=== PATIENT | male | born 1975 | race Caucasian/White ===

== ENCOUNTER 2021-07-21 15:20 | Outpatient (CLI) | payer BC, SELFPAY ==
--- NOTE | ~2021-07-21 | CT_ITS ---
EXAMINATION: CT sinus wo con DATE: 07/21/2021 15:41 INDICATION: Chronic sinusitis TECHNIQUE: Computed tomography (CT) of the paranasal sinuses was performed without intravenous contra st. The dose-length product was 288.76 mGy-cm. Automated exposure control and iterative reconstructio n technique were employed. COMPARISON: None FINDINGS: There is minimal mucosal thickening of the left frontal and ethmoid sinuses. There are muco us retention cysts in both maxillary sinuses. There is mild mucosal thickening of the maxillary sinus es. Leftward nasal septal deviation. Ostiomeatal units are patent. Mastoids are pneumatized. IMPRESSION: 1. Mild sinusitis. Reviewed, dictated and finalized at location A. [employer]PERATOR IMPRESSION: 1. Mild sinusitis.
== END 2021-07-21 15:21 | disposition home or self-care (01) ==
LOC: ANHIMG 15:24
PROVIDERS: PCP Internal Medicine; Visit Provider Internal Medicine
DX: J32.9 Chronic sinusitis, unspecified (principal); R06.83 Snoring
CPT/HCPCS: 70486

== ENCOUNTER 2025-01-22 00:34 | Day surgery (SDC) | payer BC, SELFPAY ==
[2025-01-11 13:11] VITALS: BMI 31.0
--- OUTSIDE RECORDS SUMMARY | 2025-01-22 00:39 | XMS_ITS | Continuity of Care Document ---
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 Name Role Phone Gonzalo Estrada MD Unavailable Allergies, Adverse Reactions, Alerts Substance Reaction Status Criticality No Known Drug Allergies Active No I nformation Medications Medication Instructions Dosage Effective Dates (start - stop) Status Comments fluticasone 50 mcg/Actuation Nasal [place], Susp spray 2 spray (100MCG) by intranasal route every day in each nostril 100 MCG - Active Synthroid 75 mcg Tab take 1 tablet (75MCG) by oral route every day 75 MCG - Active cetirizine 10 mg Tab take 1 tablet (10MG) by oral route every day 10 MG - Active Bepreve 1.5 % Eye Drops instill 1 drop by ophthalmic route 2 times every day into both eyes 1.00 drop - Active Please fill with 10 ml bottle Fish Oil 500 mg capsule - Active aspirin 81 mg Tab, Delayed Release take 1 tablet (81MG) by oral route every day 81 MG - Active lisinopril 20 mg Tab take 1 tablet (20MG) by oral route every day 20 MG - Active Humalog 100 unit/mL Sub-Q inject by subcutaneous route as per insulin sliding scale protocol - Active Lantus 100 unit/mL Sub-Q inject by subcutaneous route as per insulin protocol 0.00 - Active Advance Directives Directive Yes / No Effective Date File Name No Information Encounters Encounter Description Practice Location Reason(s) For Visit Diagnoses Date Provider Providers Copied on Encounter [facility], [address], [place], [place], [id number], tel:[phone] [facility] No Information 3 Sean Sánchez. [address], [id number] , . tel: [phone] Referring Provider: Gonzalo Estrada, [address] [place] [address], [id number] . tel:[phone] [employer] [facility] [facility], [address], [place], [place], [id number], tel:[phone] [facility] Allergic rhinitis due to other allergenAcute atopic conjunctivitis 3 Sean Sánchez. [address] [place] [address], [id number] , . tel: [phone] Referring Provider: Zhang Calvo DO [address] [facility] [address] [place] [address], [facility]. tel:[phone] [facility], [address], [place], [place], [id number], tel:[phone] [facility] Allergic rhinitis due to other allergen 2 Sean Sánchez. [address] [place] [address], [id number] , . tel: [phone] Referring Provider: Zhang Calvo DO, [address] [place] [address], [facility]. tel:[phone] [facility], [address], [place], [place], [id number], tel:[phone] [facility] Allergic rhinitis due to other allergen 2 Sean Sánchez. [address] [facility], [address], [id number] , . tel: [phone] Referring Provider: Zhang Calvo DO [address] [place] [address], [facility]. tel:[phone] Family History Family Member Type Diagnosis Age At Onset Sister Problem (finding) Allergies Mother Problem (finding) Allergies Payers Payer name Insurance type Covered libertarian ID Authoriza tion(s) [employer] OPEN ACCESS HMO PPO POS CI [id number] Social History Type Description Quantity Date Captured Comments Sex Male Smoking Status No Information Chief Complaint And Reason For Visit No Information Reason For Referral Reason For Referral No Information History Of Present Illness Encounter Date Complaint History Of Prese nt Illness No Information Functional Status Date Functional Assessmen t No Information Instructions Date Instruction Additional Infor mation No Information Assessments Type Assessment Date No Information Patient Care Teams Name Effective Dates (start - stop) Status Members No Information
[2025-01-22 08:17] VITALS: BP 148/87; PULSE 81; RESP 16; TEMP 36.1; O2SAT 96; BMI 30.9
--- NOTE | 2025-01-22 08:27 | WPDANESEPPF ---
Anes - Initial Pre Proc Eval Procedure: Operation Date: 01/22/25 09:30 Proposed Procedures p Screening Colonoscopy - Vitaly Somers MD Date/Time: 01/22/25 08:27 Surgeon: Vitaly Somers MD Pre Op Diagnosis: Screening Patient Data Age: 49 Gender: M Height: 1.75 m Weight: 95.2 kg Last Vital Signs Temp 97 F L 01/22/25 08:17 Pulse 81 01/22/25 08:17 Resp 16 01/22/25 08:17 BP 148/87 H 01/22/25 08:17 Pulse Ox 96 01/22/25 08:17 O2 Del Method Room Air 01/22/25 08:17 Allergies Allergy/AdvReac Type Severity Reaction Status Date / Time mold Allergy Intermediate Other Verified 01/22/25 08:16 ragweed pollen Allergy Intermediate Other Verified 01/22/25 08:16 corn Allergy Unknown Other Verified 01/22/25 08:16 soy Allergy Unknown Other Verified 01/22/25 08:16 Home Medications ?Medication ?Instructions ?Recorded ?Confirmed ?Type aspirin 81 mg tablet,delayed 81 mg PO DAILY 06/27/19 01/22/25 History release cetirizine 10 mg tablet (Zyrtec) 10 mg PO DAILY 06/27/19 01/22/25 History multivitamin (Multiple Vitamins 1 tablet PO DAILY 06/27/19 01/22/25 History tablet) omega-3 fatty acids 500 mg capsule 500 mg PO DAILY 06/27/19 01/22/25 History azelastine 137 mcg (0.1 %) nasal 1 spray intranasal Q12H PRN 03/17/22 01/11/25 History spray allergy symptoms fluticasone propionate 50 2 spray intranasal BID PRN allergy 03/17/22 01/11/25 History mcg/actuation nasal symptoms spray,suspension (Flonase Allergy Relief) urine glucose-ketones test #100 ea 01/12/23 01/08/25 Rx blood sugar diagnostic (Contour #600 ea 07/12/23 01/08/25 Rx Next Test Strips) ciclopirox 8 % topical solution 1 applic topical QHS 4 weeks #6.6 02/17/24 01/22/25 Rx mL lisinopril 20 mg tablet 20 mg PO DAILY #90 tabs 07/02/24 01/22/25 Rx [employer] Infusion Set 23 #50 ea 11/28/24 01/08/25 Rx (infusion set for insulin pump) levothyroxine 125 mcg tablet 125 mcg PO DAILY #90 tabs 12/13/24 01/22/25 Rx (Euthyrox) insulin lispro 100 unit/mL 80 unit (0.8 mL) subcut DAILY 90 01/02/25 01/22/25 Rx subcutaneous solution (Humalog days #80 mL U-100 Insulin) Patient hx anesthesia problems: none Family hx anesthesia problems: none Results Review: All pre-operative results and documents have been reviewed as part of the pre-operative evaluation. [facility] Past Medical History Medical History BMI 31.0-31.9,adult Hearing loss, bilateral Hypertrophy of both inferior nasal turbinates Nasal septal deviation Hyperlipidemia Hypothyroidism, acquired Type 1 diabetes mellitus with hyperglycemia, with long-term current use of insulin Hypertension Surgical History Surgical History H/O right knee surgery Family History Family History Mother Patient's mother is in good health Father Patient's father is in good health Family history of thyroid disease Hypertension Cerebrovascular accident Family history of diabetes mellitus in first degree relative Sibling Family history of thyroid disease Hypertension Family history of diabetes mellitus in first degree relative Other Diabetes mellitus Social History Social History Smoking status: Never smoker Second hand tobacco smoke exposure: No Alcohol intake: current Alcohol use details: 3-4 beers daily Substance use: never Substance use type: does not use Do You Feel Safe in your Home?: Yes Lack of Transportation: No Lack of Food: Never True Current Housing: I Have Housing Concerned About Future Housing: No Difficulty Paying Gas/Electric Bills: No Difficulty Paying for Meds: No Currently Unemployed: No Education: Associate Degree Difficulty w/ Childcare or Family Care: No Living arrangements: with family Occupation/Education: occupation 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 Informed Consent: The patient's anesthetic plan and its attendant risks and benefits were discussed with the patient/family/POA. Questions were solicited and answers provided to the satisfaction of the patient/family/POA.
[2025-01-22] MEDS: LACTATED RINGERS 1,000 ML 150 ML IV CONT (08:28)
--- NOTE | 2025-01-22 09:13 | PM.HPGS ---
History of Present Illness History of Present Illness Consent: Risks, benefits, and alternatives have been discussed and questions answered. Patient agrees to proceed with procedure. Chief complaint: Screening Narrative: Jerson Nelson is a 49 year old male here for first screening colonoscopy Review of Systems Review of Systems: All systems reviewed & are unremarkable except as noted in HPI and below PMFSH Past Medical History Medical History BMI 31.0-31.9,adult Hearing loss, bilateral Hypertrophy of both inferior nasal turbinates Nasal septal deviation Hyperlipidemia Hypothyroidism, acquired Type 1 diabetes mellitus with hyperglycemia, with long-term current use of insulin Hypertension Surgical History Surgical History H/O right knee surgery Family History Family History Mother Patient's mother is in good health Father Patient's father is in good health Family history of thyroid disease Hypertension Cerebrovascular accident Family history of diabetes mellitus in first degree relative Sibling Family history of thyroid disease Hypertension Family history of diabetes mellitus in first degree relative Other Diabetes mellitus Social History Social History Smoking status: Never smoker Second hand tobacco smoke exposure: No Alcohol intake: current Alcohol use details: 3-4 beers daily Substance use: never Substance use type: does not use Do You Feel Safe in your Home?: Yes Lack of Transportation: No Lack of Food: Never True Current Housing: I Have Housing Concerned About Future Housing: No Difficulty Paying Gas/Electric Bills: No Difficulty Paying for Meds: No Currently Unemployed: No Education: Associate Degree Difficulty w/ Childcare or Family Care: No Living arrangements: with family Occupation/Education: occupation 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 [employer] Gender identity (if verbalized by the patient): Male Meds Home Medications and Allergies Home Medications ?Medication ?Instructions ?Recorded ?Confirmed ?Type aspirin 81 mg tablet,delayed 81 mg PO DAILY 06/27/19 01/22/25 History release cetirizine 10 mg tablet (Zyrtec) 10 mg PO DAILY 06/27/19 01/22/25 History multivitamin (Multiple Vitamins 1 tablet PO DAILY 06/27/19 01/22/25 History tablet) omega-3 fatty acids 500 mg capsule 500 mg PO DAILY 06/27/19 01/22/25 History azelastine 137 mcg (0.1 %) nasal 1 spray intranasal Q12H PRN 03/17/22 01/11/25 History spray allergy symptoms fluticasone propionate 50 2 spray intranasal BID PRN allergy 03/17/22 01/11/25 History mcg/actuation nasal symptoms spray,suspension (Flonase Allergy Relief) urine glucose-ketones test #100 ea 01/12/23 01/08/25 Rx blood sugar diagnostic (Contour #600 ea 07/12/23 01/08/25 Rx Next Test Strips) ciclopirox 8 % topical solution 1 applic topical QHS 4 weeks #6.6 02/17/24 01/22/25 Rx mL lisinopril 20 mg tablet 20 mg PO DAILY #90 tabs 07/02/24 01/22/25 Rx [employer]el Infusion Set 23 #50 ea 11/28/24 01/08/25 Rx (infusion set for insulin pump) levothyroxine 125 mcg tablet 125 mcg PO DAILY #90 tabs 12/13/24 01/22/25 Rx (Euthyrox) insulin lispro 100 unit/mL 80 unit (0.8 mL) subcut DAILY 90 01/02/25 01/22/25 Rx subcutaneous solution (Humalog days #80 mL U-100 Insulin) Allergies Allergy/AdvReac Type Severity Reaction Status Date / Time mold Allergy Intermediate Other Verified 01/22/25 08:16 ragweed pollen Allergy Intermediate Other Verified 01/22/25 08:16 corn Allergy Unknown Other Verified 01/22/25 08:16 soy Allergy Unknown Other Verified 01/22/25 08:16 Vital Signs Vital Signs - 24 hr 01/22/25 08:17 Temperature 97 F L Pulse Rate 81 Respiratory Rate 16 Blood Pressure 148/87 H Pulse Oximetry 96 Oxygen Delivery Room Air Exam Const: General: comfortable and no acute distress HENMT: Face/Nose/Sinus: Normal nares present Eyes: General: appearance normal, both eyes and all related structures Neck: Neck: no JVD Resp: Auscultation: clear to auscultation bilaterally Cardio: Rate: regular rate Rhythm: regular rhythm GI: Inspection: non-distended GI Palp: Yes Soft to palpation Skin: General skin exam: normal color Neuro: General: gait normal Speech: normal speech Extrem: General: normal to inspection Psych: Mental Status: mental status grossly normal Assessment and Plan Assessment and plan (1) Screening for colon cancer: Code(s): Z12.11 - Encounter for screening for malignant neoplasm of colon Status: Acute Assessment and Plan: colonoscopy
[2025-01-22 09:30] VITALS: BP 100/69; PULSE 76; RESP 17; O2SAT 97
[2025-01-22 09:40] VITALS: BP 115/74; PULSE 72; RESP 16; O2SAT 98
--- NOTE | 2025-01-22 09:42 | SUR.PHASEII ---
BG in post-op via insulin pump is 134.
[2025-01-22 09:50] VITALS: BP 125/76; PULSE 67; RESP 16; O2SAT 100
== END 2025-01-22 10:05 | disposition home or self-care (01) ==
PROVIDERS: PCP Nurse Practitioner; Referring Provider Nurse Practitioner; Visit Provider Internal Medicine Gastroenterology
PROC: 0DJD8ZZ Inspection of Lower Intestinal Tract, Via Natural or Artificial Opening Endoscopic (ICD-10-PCS; CPT 45378; principal; 2025-01-22 09:30)
DX: Z12.11 Encounter for screening for malignant neoplasm of colon (principal); E78.5 Hyperlipidemia, unspecified; E03.9 Hypothyroidism, unspecified; I10 Essential (primary) hypertension; E10.65 Type 1 diabetes mellitus with hyperglycemia; H91.93 Unspecified hearing loss, bilateral; E66.9 Obesity, unspecified; Z68.31 Body mass index [BMI] 31.0-31.9, adult; Z79.4 Long term (current) use of insulin; Z79.82 Long term (current) use of aspirin; Z98.890 Other specified postprocedural states; Z82.49 Family history of ischemic heart disease and other diseases of the circulatory system
CPT/HCPCS: 45378; J2003; J2704; J7120

== ENCOUNTER 2025-06-12 08:44 | Outpatient (CLI) | payer BC, SELFPAY ==
--- NOTE | 2025-07-08 09:33 | WPDSLEEPSTUD ---
Sleep Study Date of Study: 06/12/25 Ordering Provider: Valentín Estrada APRN Interpreting Physician: Pastora Waldrop DO Sleep Study Type: Split Polysomnogram Height: 1.75 m Weight: 92.533 kg Body Mass Index: 30.1 Neck Circumference (inches): 17 [place]: 13 Reason for Sleep Study Excessive daytime sleepiness Sleep History The patient is a 49-year-old male that had a sleep study ordered by his primary care for evaluation of sleep apnea. The patient denies awakening from sleep short of breath. He rarely awakens at night with heartburn, belching or cough. He frequently snores and is frequently loud enough that others complain. He occasionally has trouble sleeping when he has a cold. He denies waking up gasping for air throughout the night. He occasionally has breathing problems at night observed by himself or others. He rarely sweats excessively at night. He rarely has heart palpitations or irregular heartbeats during the night. He occasionally falls asleep during the day but rarely while driving. He denies sleep paralysis, cataplexy and hypnagogic/ hypnopompic hallucinations. He rarely has trouble at school or work due to sleepiness. He denies feeling afraid of going to sleep. He denies having nightmares. He frequently remembers his dreams. He denies having thoughts racing through his mind. He rarely feels sad or depressed. He rarely has anxiety. He occasionally notices parts of his body jerk. He rarely kicks during the night. He occasionally has crawling and aching feelings in his legs but denies having leg pain during the night. He occasionally grinds his teeth during sleep and is occasionally awakened with morning jaw pain. He is rarely bothered by pain during the day but never awakened by pain during the night. He rarely wakes up feeling stiff in the morning. He denies waking up with sore or achy muscles. He rarely wakes up with pain in the neck, spine and other joints. He goes to bed between 10:30-11 p.m. on weekdays and between midnight to 12:30 a.m. on the weekends. It takes him a few minutes to fall asleep. He wakes up 2-3 times throughout the night to urinate and is able to fall back asleep within a few minutes. He wakes up at 5:30 a.m. on weekdays and at 7:30 a.m. on the weekends. He typically gets 6 hours of sleep per night. He will stay in bed for 10-15 minutes after waking up in the morning. He currently lives with his and 3 children. He denies consuming any caffeinated beverages within 2 hours of bedtime. He denies engaging in physical exercise before bedtime. He denies reading before falling asleep. He does feel refreshed after a 10-15 minute naps. He consumes 4-5 caffeinated beverages per day. He denies tobacco use. He consumes 4-6 alcoholic beverages per day. He denies recreational drug use. [facility] Past Medical History Medical History BMI 31.0-31.9,adult Hearing loss, bilateral Hypertrophy of both inferior nasal turbinates Nasal septal deviation Hyperlipidemia Hypothyroidism, acquired Type 1 diabetes mellitus with hyperglycemia, with long-term current use of insulin Hypertension Surgical History Surgical History H/O right knee surgery Family History Family History Mother Patient's mother is in good health Father Patient's father is in good health Family history of thyroid disease Hypertension Cerebrovascular accident Family history of diabetes mellitus in first degree relative Sibling Family history of thyroid disease Hypertension Family history of diabetes mellitus in first degree relative Other Diabetes mellitus Social History Social History Smoking status: Never smoker Second hand tobacco smoke exposure: No Alcohol intake: current Drinks per week: 3 Alcohol use details: 3-4 beers daily Substance use: never Substance use type: does not use Do You Feel Safe in your Home?: Yes Lack of Transportation: No Lack of Food: Never True Current Housing: I Have Housing Concerned About Future Housing: No Difficulty Paying Gas/Electric Bills: No Difficulty Paying for Meds: No Currently Unemployed: No Education: Associate Degree Difficulty w/ Childcare or Family Care: No Living arrangements: with family Occupation/Education: occupation Additional occupation/education comments: [employer] Gender identity (if verbalized by the patient): Male Medications Home Medications ?Medication ?Instructions ?Recorded ?Confirmed ?Type aspirin 81 mg tablet,delayed 81 mg PO DAILY 06/27/19 05/15/25 History release cetirizine 10 mg tablet (Zyrtec) 10 mg PO DAILY 06/27/19 05/15/25 History multivitamin (Multiple Vitamins 1 tablet PO DAILY 06/27/19 05/15/25 History tablet) omega-3 fatty acids 500 mg capsule 500 mg PO DAILY 06/27/19 05/15/25 History azelastine 137 mcg (0.1 %) nasal 1 spray intranasal Q12H PRN 03/17/22 05/15/25 History spray allergy symptoms fluticasone propionate 50 2 spray intranasal BID PRN allergy 03/17/22 05/15/25 History mcg/actuation nasal symptoms spray,suspension (Flonase Allergy Relief) urine glucose-ketones test #100 ea 01/12/23 05/15/25 Rx blood sugar diagnostic (Contour #600 ea 07/12/23 05/15/25 Rx Next Test Strips) ciclopirox 8 % topical solution 1 applic topical QHS 4 weeks #6.6 02/17/24 05/15/25 Rx mL insulin lispro 100 unit/mL 80 unit (0.8 mL) subcut DAILY 90 01/02/25 05/15/25 Rx subcutaneous solution (Humalog days #80 mL U-100 Insulin) lisinopril 20 mg tablet 20 mg PO DAILY #90 tabs 01/28/25 05/15/25 Rx infusion set for insulin pump #50 ea 03/06/25 05/15/25 Rx (AutoSoft XC Infusion Set 23) levothyroxine 125 mcg tablet 125 mcg PO DAILY #90 tabs 04/10/25 05/15/25 Rx (Euthyrox) rosuvastatin 20 mg tablet (Crestor) 20 mg PO DAILY #90 tabs 04/24/25 05/15/25 Rx insulin infusion set-insulin pump #100 ea 06/04/25 Rx cartridge combo pack (Tandem t:slim ASFT XC PK10 23 6mm combo pack) Sleep Procedure A full night split study using the [employer] multi-channel system recorded the standard physiologic parameters including EEG, EOG, submentalis EMG, anterior tibialis EMG, EKG, body position, nasal and oral airflow using nasal pressure sensor and thermistor.? Respiratory parameters of chest and abdominal movements were recorded with Respiratory Inductance Plethysmography belts. Oxygen saturation was recorded by pulse oximetry. Video monitoring was also performed. Sleep stages, periodic limb movements, and EEG arousals were scored in 30 second epochs according to the criteria of the AASM Scoring Manual. The Apnea-Hypopnea Index was calculated using [facility] guidelines for definition of hypopnea with 4% O2 desaturations while scoring respiratory events. Sleep Architecture During the diagnostic portion of the study, the total recording time was 176.5 minutes. The total sleep time was 154.0 minutes. Sleep latency was 0.5 minutes.? REM latency was 62.5 minutes. Sleep Efficiency was 87.3%. The patient had 13 awakenings for an awakening index of 5.1. Wake after sleep onset time was 22.0 minutes. The patient spent 16.5 minutes, 10.7% of total sleep time in Stage N1. The patient spent 93.0 minutes, 60.4% in Stage N2. The patient spent 32.0 minutes, 20.8% in Stage N3. The patient spent 12.5 minutes, 8.1% in Stage REM sleep. At 12:26:28 AM the patient was placed on PAP treatment and was titrated at pressures ranging from 5 cm H20 up to 9/4 cm H20. During the treatment portion of the study, the total recording time was 353.8 minutes.? The total sleep time was 307.5 minutes. Sleep latency was 6.0 minutes. REM latency was 107.0 minutes. Sleep Efficiency was 86.9%. Wake after Sleep Onset time was 40.0 minutes. The patient spent 28.0 minutes, 9.1% of total sleep time in Stage N1. The patient spent 184.0 minutes, 59.8% in Stage N2. The patient spent 7.5 minutes, 2.4% in Stage N3. The patient spent 88.0 minutes, 28.6% in Stage REM. Respiratory Analysis During the diagnostic portion of the study, the patient had 28 hypopneas for an overall Apnea Hypopnea Index of 10.9 events per hour. The REM Apnea Hypopnea Index was 0. The NREM Apnea Hypopnea Index was 11.9. The patient had a Central Apnea Hypopnea Index of 0. There was no evidence of Renny-Schrader Respirations. During the treatment portion of the study, the patient had 14 hypopneas and 60 central apneas for an overall Apnea Hypopnea Index of 14.4 events per hour. The REM Apnea Hypopnea Index was 9.5. The NREM Apnea Hypopnea Index was 16.4. The patient had a Central Apnea Hypopnea Index of 11.7. There was no evidence of Renny-Schrader Respirations. The patient was started on CPAP 5 cm H2O and was titrated to BPAP 9/4 cm H2O due to central apneas and hypopneas. The patient was started on CPAP 5 cm H2O. The patient was able to achieve REM sleep on CPAP 7 cm H2O. The lowest residual AHI the patient was able to achieve during the titration portion of the study was 2.4 on CPAP 8 cm H2O. Once the patient was titrated past 8 cm H2O, the majority of the patient's respiratory events were central apneas. On CPAP 8 cm H2O, the patient spent 50 minutes in NREM and 24.5 minutes in REM with 1 central apnea and 2 hypopneas, resulting in an AHI of 2.4. The patient had a sleep efficiency of 98% on this pressure setting. Arousals During the diagnostic portion of the study, there were a total of 65 arousals for an arousal index of 25.3.? There were 10 respiratory arousals for an index of 3.9. There were 23 periodic limb movement arousals for an index of 9.0.? There were 11 isolated limb movement arousals for an index of 4.3. There were 22 spontaneous arousals for an index of 8.6. During the treatment portion of the study, there were a total of 78 arousals for an index of 15.2.? There were 6 respiratory arousals for an index of 1.2. There were 6 periodic limb movement arousals for an index of 1.2.? There were 28 isolated limb movement arousals for an index of 5.5. There were 38 spontaneous arousals for an index of 7.4. Periodic Limb Movements During the diagnostic portion of the study, the patient had 20 isolated limb movements with an index of 7.8. The patient had 158 periodic limb movements with an index of 61.6, which is elevated (normal < 15). The patient had a total of 178 limb movements with a total limb movement index of 69.4. During the treatment portion of the study, the patient had 55 isolated limb movements with an index of 10.7. The patient had 57 periodic limb movements with an index of 11.1. The patient had a total of 112 limb movements with a total limb movement index of 21.9. Oximetry Data During the diagnostic portion of the study, the patient had an average oxygen saturation of 95% in wake with a minimum oxygen saturation of 84% and a maximum oxygen saturation of 99%. The patient had an average oxygen saturation of 95.3% in sleep with a minimum oxygen saturation of 85.0% and a maximum oxygen saturation of 98.0%. The patient had 31 oxygen desaturations resulting in an Oxygen Desaturation Index of 12.1. The patient spent 0.4 minutes, 0.2% of total sleep time with an oxygen saturation less than 88%. During the treatment portion of the study, the patient had an average oxygen saturation of 96.1% in wake with a minimum oxygen saturation of 85.0% and a maximum oxygen saturation of 99.0%. The patient had an average oxygen saturation of 96.1% in sleep with a minimum oxygen saturation of 88.0% and a maximum oxygen saturation of 99.0%. The patient had 72 oxygen desaturations resulting in an Oxygen Desaturation Index of 14.0. The patient spent 0.4 minutes, 0.1% of total sleep time with an oxygen saturation less than 88%. Snoring Profile Mild snoring was present in the baseline portion of the study. The snoring resolved once the patient was titrated to CPAP 6 cm H2O. Cardiac Profile The EKG lead showed normal sinus rhythm with rare PVCs. During the diagnostic portion of the study, the average pulse rate was 60.8 bpm.? The minimum pulse rate was 30.0 bpm. The maximum pulse rate was 98.0 bpm. During the treatment portion of the study, the average pulse rate was 59.2 bpm.? The minimum pulse rate was 51.0 bpm. The maximum pulse rate was 98.0 bpm. EEG Profile No signs of seizure activity seen. Assessment and Plan Assessment and Plan (1) Treatment-emergent central sleep apnea: Code(s): T81.89XA - Other complications of procedures, not elsewhere classified, initial encounter; G47.33 - Obstructive sleep apnea (adult) (pediatric); G47.37 - Central sleep apnea in conditions classified elsewhere Status: Acute Assessment and Plan: In the baseline portion of the study, the patient had an overall AHI of 10.9 with desaturation down to 85%. This is consistent with mild sleep apnea. Due to the patient's diabetes, he qualifies for treatment. The patient was started on CPAP 5 cm H2O and was titrated to BPAP 9/4 cm H2O due to central apneas and hypopneas. We were able to find a pressure setting that resolved the patient's sleep apnea. I recommend that the patient be prescribed CPAP 8 cm H2O, size medium F&P Solo nasal mask, CPAP filters/tubing and heated humidity. This should be used with all episodes of sleep.? Compliance should be reviewed within 31-90 days of starting therapy for usage greater than 4 hours per night greater than 70% of the nights. The patient should be asked about symptoms such as?excessive daytime sleepiness, quality of sleep, decreased nocturia, increased?mental functioning such as memory, mood, and concentration. Data The data obtained during this sleep study is adequate for interpretation. Certification This sleep study has been reviewed by a board certified sleep medicine physician.
[2025-07-08 16:21] VITALS: BMI 30.1
== END 2025-06-13 07:22 | disposition home or self-care (01) ==
PROVIDERS: PCP Nurse Practitioner; Visit Provider Nurse Practitioner
DX: G47.33 Obstructive sleep apnea (adult) (pediatric) (principal); G47.10 Hypersomnia, unspecified; G47.37 Central sleep apnea in conditions classified elsewhere; I10 Essential (primary) hypertension; T81.89XA Other complications of procedures, not elsewhere classified, initial encounter
CPT/HCPCS: 95811